=== PATIENT | male | born 1975 | race Caucasian/White ===

== ENCOUNTER → 2019-11-02 | Outpatient (CLI) | payer SELFPAY ==
[2019-10-20 16:08] VITALS: BMI 25.1
--- NOTE | 2019-11-02 12:56 | ECHOCS_ITS ---
Reason For Study: Arrhythmia Procedure This was a 2D Doppler, Color Flow transthoracic echocardiogram. The study was technically difficult. Contrast injection was performed. Exam performed in department. Left Ventricle Normal LV size. Left ventricular systolic function is normal. The estimated ejection fraction is 55 %. No regional wall motion abnormalities noted. Mitral Valve Bileaflet diffuse mitral valve thickening. Mild mitral valve prolapse. Pulmonic Valve Normal pulmonic valve. Great Vessels Normal aortic root. The pulmonary artery is normal size. Normal inferior vena cava. Pericardium/Pleural No pericardial effusion. Medication 22 gauge I.V. with prn adaptor inserted into left arm. Diluted definity 3ml given slow IV push to enhance endocardial definition. MMode/2D Measurements & Calculations LVIDd: 4.6 cm IVSd: 1.3 cm LA dimension: 3.6 cm LVIDs: 3.1 cm LVPWd: 0.98 cm FS: 31.9 % LAV(MOD-bp): 50.8 ml LA A4 area: 16.0 cm2 RA A4 area: 15.4 cm2 LAV(MOD-bp) Indexed: 25.2 ml/m2 LAV(MOD-sp2): 57.9 ml LAV(MOD-sp4): 44.5 ml Time Measurements MV dec time: 0.29 sec Doppler Measurements & Calculations MV E max natanael: 60.5 cm/sec Lat Peak E' Natanael: 8.8 cm/sec Med Peak E' Natanael: 9.5 cm/sec MV A max natanael: 47.6 cm/sec E/E' lat: 6.9 E/E' med: 6.4 MV E/A: 1.3 MV V2 max: 62.6 cm/sec MV P1/2t max natanael: 62.0 cm/sec Ao V2 max: 104.9 cm/sec MV max P.6 mmHg MV P1/2t: 93.6 msec Ao max P.4 mmHg MV V2 mean: 37.2 cm/sec MV mean P.62 mmHg MV dec slope: 194.1 cm/sec2 MV V2 VTI: 24.3 cm MVA(P1/2t): 2.4 cm2 LV V1 max: 93.2 cm/sec PA V2 max: 119.4 cm/sec LV V1 max P.5 mmHg Interpretation Summary Normal LV size. Left ventricular systolic function is normal. The estimated ejection fraction is 55 %. Bileaflet diffuse mitral valve thickening. Mild mitral valve prolapse. Ordering Physician: Jefferson Guzman Referring Physician: Jefferson Guzman Performed By: Tyler Ferreira RCS
[2019-11-02 17:54] LABS: Absolute Lymphocyte Count 1.27 X10^3/uL (0.83-4.51); Absolute Neutrophil Count 3.1 X10^3/uL (2.0-7.7); Basophil# 0.04 X10^3/uL; Basophil% 0.8 % (0-1); Eosinophil# 0.06 X10^3/uL; Eosinophils% 1.2 % (0-5); Hematocrit 44.9 % (40-54); Hemoglobin 15.3 g/dL (13.0-16.5); Lymphocyte # 1.27 X10^3/ul (4.0); Lymphocyte % 25.8 % (19-41); Mean Corp Hgb Conc 34.1 g/dL (32-36); Mean Corpuscular Hgb 29.9 pg (27.0-32.0); Mean Corpuscular Volume 87.7 fL (80-94); Mean Platelet Vol. 9.6 fl (6.2-12.0); Monocyte# 0.46 X10^3/uL; Monocyte% 9.3 % (0-10); NRBC Flagged by Analyzer 0 % (0-5); Neutrophil # 3.08 X10^3/uL (2.7-7.7); Neutrophil % 62.5 % (47-70); Platelet Count 264 K/mm3 (150-450); RBC Distribution Width SD 38.2 fl (35.1-43.9); Red Blood Count 5.12 M/mm3 (4.6-6.2); White Blood Count 4.9 K/mm3 (4.4-11.0)
[2019-11-02 18:16] LABS: ALB/GLOB Ratio 1.3 RATIO (0.9-2.4); AST(SGOT) 18 U/L (15-37); Alanine Aminotransfer ALT/SGPT 49 U/L (16-61); Albumin, Serum 4.2 g/dL (3.2-5.0); Alkaline Phosphatase 58 U/L (45-117); Anion Gap 4 (5-15); BUN 18 mg/dL (7-18); BUN/Creat Ratio 19.3 RATIO (10-20); Calcium,Total 8.4 mg/dL (8.5-10.1); Chloride 108 mmol/L (98-107); Creatinine, Serum 0.93 mg/dL (0.70-1.30); EST Glomerular Filtration Rate 94 mL/min (>60); Est Glom Filt Rate - Afr Amer 114 mL/min (>60); Globulin 3.3 g/dL (2.2-4.2); Glucose 91 mg/dL (74-106); Magnesium 2.3 mg/dL (1.6-2.6); Potassium 3.7 mmol/L (3.5-5.1); Protein, Total 7.5 g/dL (6.4-8.2); Sodium Level 139 mmol/L (136-145); Thyroid Stim Hormone (TSH) 3.53 uIU/mL (0.358-3.74); Vitamin B12 420 pg/mL (211-911); Vitamin D,25 Hydroxy 40.6 ng/mL
== END | disposition home or self-care (01) ==
PROVIDERS: PCP Family Medicine; Visit Provider Family Medicine
DX: I49.49 Other premature depolarization (principal); R00.2 Palpitations; R53.83 Other fatigue
CPT/HCPCS: 36415; 80053; 82306; 82607; 83735; 84443; 85025; 93225; 93226; 93306; Q9957; A4216; C8929

== ENCOUNTER → 2020-05-05 | Outpatient (CLI) | payer SELFPAY ==
--- NOTE | 2020-05-05 08:45 | VAS_PTH ---
PATIENT: ELMER HERNANDEZ LOC: [facility] U#:[id number] AGE/SX: 44/M ROOM: RE05/05/[address]: Dr. Andre Castano MD : [id number] BED: DIS: 05/05/2020 SPEC #: [id number] RECD: 05/05/20 10:44 STATUS: CHRISTIANE REQ #: [id number] KENZIE: 05/05/20 08:[address]: Andre Castano DEPT: SURGICAL PATHOLOGY RECD BY: Veronique Sams ENTERED: 05/05/20 11:29 SP TYPE: VAS OTHR DR: Dr. Marino Trinidad MD Tissues: A - Vas deferens, NOS B - Vas deferens, NOS Procedures: Surgery Specimen Level II HEADER OPERATION: Bilateral partial vasectomy PRE-OP DIAGNOSIS: Sterilization TISSUE SUBMITTED: A - Right vas deferens, B - Left vas deferens MICROSCOPIC DIAGNOSIS A. Right vas deferens, partial vasectomy: Completely transected segment of vas deferens, no pathologic diagnosis. B. Left vas deferens, partial vasectomy: Completely transected segment of vas deferens, no pathologic diagnosis. MERLYN:lorena 05/08/2020 MICROSCOPIC DESCRIPTION Slides are reviewed. GROSS DESCRIPTION A - Received is one container designated right vas deferens. The specimen consists of a tubular segment of arnold soft tissue measuring 0.4 cm in length and 0.1 cm in diameter. The entire specimen is submitted in one cassette. It will be sectioned at the time of embedding. B - Received is one container designated left vas deferens. The specimen consists of a tubular segment of arnold soft tissue measuring 0.5 cm in length and 0.1 cm in diameter. The entire specimen is submitted in one cassette. It will be sectioned at the time of embedding. / MERLYN:lorena 05/05/20 TC:4 CPT: 52928 x2
== END | disposition home or self-care (01) ==
LOC: LABSPEC 10:56
PROVIDERS: PCP Family Medicine; Referring Provider Surgery; Visit Provider Surgery
DX: Z30.2 Encounter for sterilization (principal)
CPT/HCPCS: 88302

== ENCOUNTER → 2020-10-31 | Outpatient (CLI) | payer SELFPAY ==
[2020-10-31 12:17] VITALS: BMI 25.5
[2020-11-01 13:34] LABS: Semen Analysis Post Vas ABSENT
== END | disposition home or self-care (01) ==
LOC: LABSPEC 14:50
PROVIDERS: PCP Family Medicine; Visit Provider Surgery
DX: Z98.52 Vasectomy status (principal)
CPT/HCPCS: 89321

== ENCOUNTER 2021-04-23 15:21 | Outpatient (CLI) | payer OTHER, SELFPAY ==
[2021-04-24 14:19] LABS: Semen Analysis Post Vas REVIEWED
== END 2021-04-23 23:59 | disposition home or self-care (01) ==
LOC: LABSPEC 15:21
PROVIDERS: PCP Family Medicine; Visit Provider Surgery
DX: Z98.52 Vasectomy status (principal)
CPT/HCPCS: 89321

== ENCOUNTER → 2021-10-11 | Outpatient (CLI) | payer OTHER, SELFPAY ==
--- NOTE | 2021-10-11 10:32 | RAD_ITS ---
INDICATION: COUGH EXAMINATION/TECHNIQUE: X-RAY - XR Chest 2 Views COMPARISON: None. FINDINGS: Support devices: None. No focal consolidations, effusions, or sizable pneumothorax. Cardiomediastinal silhouette is within normal limits. No acute findings in the bones or soft tissues. RAD/Chest PA and Lateral IMPRESSION: No radiographic evidence of acute cardiopulmonary disease. Electronically Signed: Matthew Anderson, at 10:52 EDT ,
== END | disposition home or self-care (01) ==
LOC: MTRAD 10:30
PROVIDERS: PCP Family Medicine; Referring Provider Family Medicine; Visit Provider Family Medicine
DX: R05.9 Cough, unspecified (principal)
CPT/HCPCS: 71046

== ENCOUNTER → 2022-11-15 | Outpatient (CLI) | payer OTHER, SELFPAY ==
[2022-11-15 17:34] LABS: Absolute Lymphocyte Count 1.47 X10^3/uL (0.83-4.51); Absolute Neutrophil Count 2.7 X10^3/uL (2.0-7.7); Basophil# 0.04 X10^3/uL; Basophil% 0.8 % (0-1); Eosinophils% 2.1 % (0-5); Hematocrit 48.1 % (40-54); Hemoglobin 15.8 g/dL (13.0-16.5); Lymphocyte # 1.47 X10^3/ul (0.83-4.51); Lymphocyte % 30.4 % (19-41); Mean Corp Hgb Conc 32.8 g/dL (32-36); Mean Corpuscular Hgb 29.2 pg (27.0-32.0); Mean Corpuscular Volume 88.7 fL (80-94); Mean Platelet Vol. 9.5 fl (6.2-12.0); Monocyte# 0.52 X10^3/uL; Monocyte% 10.7 % (0-10); NRBC Flagged by Analyzer 0 % (0-5); Neutrophil % 55.8 % (47-70); Platelet Count 287 K/mm3 (150-450); RBC Distribution Width SD 39.1 fl (35.1-43.9); Red Blood Count 5.42 M/mm3 (4.6-6.2); White Blood Count 4.8 K/mm3 (4.4-11.0)
[2022-11-15 18:07] LABS: ALB/GLOB Ratio 1.3 RATIO (0.9-2.4); AST(SGOT) 19 U/L (15-37); Alanine Aminotransfer ALT/SGPT 40 U/L (16-61); Albumin, Serum 4.3 g/dL (3.2-5.0); Alkaline Phosphatase 58 U/L (45-117); Anion Gap 5 (5-15); BUN 18 mg/dL (7-18); BUN/Creat Ratio 15.3 RATIO (10-20); Calcium,Total 9.1 mg/dL (8.5-10.1); Chloride 105 mmol/L (98-107); Cholesterol 183 mg/dL (200); Creatinine, Serum 1.18 mg/dL (0.70-1.30); EST Glomerular Filtration Rate 71 mL/min (>60); Est Glom Filt Rate - Afr Amer 86 mL/min (>60); Globulin 3.4 g/dL (2.2-4.2); Glucose 95 mg/dL (74-106); High Density Lipoprotein 53 mg/dL; PSA,Total - Annual Screen 0.41 ng/mL (0.00-4.00); Potassium 4.9 mmol/L (3.5-5.1); Protein, Total 7.7 g/dL (6.4-8.2); Sodium Level 139 mmol/L (136-145); Thyroid Stim Hormone (TSH) 6.66 uIU/mL (0.358-3.74); Triglycerides 174 mg/dL; Very Low Density Lipoprotein 35 mg/dL (5-40)
== END | disposition home or self-care (01) ==
LOC: MFPLAB 16:17
PROVIDERS: PCP Family Medicine; Visit Provider Family Medicine
DX: R39.198 Other difficulties with micturition (principal); Z13.220 Encounter for screening for lipoid disorders
CPT/HCPCS: 36415; 80053; 80061; 84153; 84443; 85025; G0103

== ENCOUNTER → 2023-01-10 | Outpatient (CLI) | payer OTHER, SELFPAY ==
[2023-01-10 18:09] LABS: Vitamin B12 455 pg/mL (211-911); Vitamin D,25 Hydroxy 45.1 ng/mL
[2023-01-10 18:13] LABS: Thyroid Stim Hormone (TSH) 3.62 uIU/mL (0.358-3.74)
[2023-01-16 12:09] LABS: Anti-Thyroglobulin AB < 1.0 IU/mL (0.0-0.9); Testosterone, % Free 2.23 % (1.50-4.20); Testosterone, Free 2.27 ng/dL (5.00-21.00); Testosterone, Total 102 ng/dL (264-916); Thyroglobulin, Serum Qt. 15.7 ng/mL (1.4-29.2); Thyroid Peroxidase AB 359 IU/mL (0-34); Thyroid Stim Immunoglob 0.37 IU/L (0.00-0.55)
== END | disposition home or self-care (01) ==
LOC: MFPLAB 14:49
PROVIDERS: PCP Family Medicine; Visit Provider Family Medicine
DX: R53.83 Other fatigue (principal); E01.0 Iodine-deficiency related diffuse (endemic) goiter
CPT/HCPCS: 36415; 82306; 82607; 84402; 84403; 84432; 84439; 84443; 84445; 86376; 86800

== ENCOUNTER → 2023-01-27 | Outpatient (CLI) | payer OTHER, SELFPAY ==
--- NOTE | 2023-01-27 16:17 | US_ITS ---
STUDY: THYROID ULTRASOUND REASON FOR EXAM: Male, 47 years old. THYROMAEGALY TECHNIQUE: Ultrasound evaluation of the thyroid was performed with real-time and static mclain-scale imaging. COMPARISON: None. FINDINGS: RIGHT LOBE: The right lobe of the thyroid gland measures 5.5 x 1.7 x 1.8 cm. There is a heterogeneous echotexture. There are no demonstrated solid, cystic or complex lesions. LEFT LOBE: The left lobe of the thyroid gland measures 4.7 x 1.3 x 1.5 cm. There is a heterogeneous echotexture. There are no demonstrated solid, cystic or complex lesions. ISTHMUS: The isthmus measures 0.52 cm. The regional lymph nodes are normal. US/Thyroid IMPRESSION: Unremarkable ultrasound examination of the thyroid with no distinct nodule or mass seen. Electronically Signed: Ibis Gallo MD at 20:52 EDT ,
== END | disposition home or self-care (01) ==
LOC: US 16:16
PROVIDERS: PCP Family Medicine; Referring Provider Family Medicine; Visit Provider Family Medicine
DX: E01.0 Iodine-deficiency related diffuse (endemic) goiter (principal)
CPT/HCPCS: 76536

== ENCOUNTER → 2023-04-23 | Outpatient (CLI) | payer OTHER, SELFPAY ==
--- OUTSIDE RECORDS SUMMARY | 2023-04-23 16:40 | XMS RPT_ITS | CCD ---
Author Name Unknown Address [address] [place] [address] Organization [facility] Care Team Providers Care Molder Sweep Name Role Phone [facility] Admitting Unava ilable [facility] Primary Care Unava ilable [facility] Attending UnaALEXIS Pinedo Consulting Unavailable PROVIDER, UNKNOWN Consulting Unavailable PROVIDER, UNKNOWN Consulting Unavailable PROVIDER, UNKNOWN Consulting Unavailable CHRIS, YASMANI MULE SPINNER- Admitting Unavailable PEREZ, YASMANI MULE SPINNER- Primary Care Unavailable PEREZ, YASMANI MULE SPINNER- Attending Unavailable ALEXIS NELSON Consulting Unavailable PROVIDER, UNKNOWN Consulting Unavailable PROVIDER, UNKNOWN Consulting Unavailable PROVIDER, UNKNOWN Consulting Unavailable Encounters Encounter Date Encounter Type Care Provider Facility Start: 02-26-2021 End: 02-26-2021 ambulatory [facility] Start: 11-20-2020 End: 11-20-2020 [facility] Summary Purpose Family History No Family History Records Found Advance Directives No Advanced Directives Records Found Additional Source Comments (unrecognized sect ion and content) No Status Records Found INFORMATION SOURCE (unrecogn ized section and content) FOR RECORDS PERTAINING TO PATIENTS WHO ARE OR HAVE BEEN ENROLLED IN A CHEMICAL DEPENDENCY/SUBSTANCEABUSE PROGRAM, SOME INFORMATION MAY BE OMITTED. This clinical summary was aggregated from multiple sources. Caution should be exercised in using it in the provision of clinical care. This summary normalizes information from multiple sources, and as a consequence, information in this document may materially change the coding, format and clinical context of patient data. In addition, data may be omitted in some cases. CLINICAL DECISIONS SHOULD BE BASED ON THE PRIMARY CLINICAL RECORDS. [facility] [employer] [facility]. provides no warranty or guarantee of the accuracy or completeness of information in this document.
[2023-04-23 18:33] LABS: T4 Free Direct 0.75 ng/dL (0.76-1.46); Thyroid Stim Hormone (TSH) 5.42 uIU/mL (0.358-3.74)
[2023-05-03 00:23] LABS: Testosterone Free 3.8 pg/mL (6.8-21.5)
== END | disposition home or self-care (01) ==
LOC: MFPLAB 15:59
PROVIDERS: PCP Family Medicine; Visit Provider Family Medicine
DX: E06.3 Autoimmune thyroiditis (principal)
CPT/HCPCS: 36415; 84402; 84403; 84439; 84443

== ENCOUNTER → 2023-07-23 | Outpatient (CLI) | payer OTHER, SELFPAY ==
[2023-07-23 18:01] LABS: Absolute Lymphocyte Count 1.54 X10^3/uL (0.83-4.51); Absolute Neutrophil Count 2.4 X10^3/uL (2.0-7.7); Basophil# 0.05 X10^3/uL; Basophil% 1.1 % (0-1); Eosinophil# 0.07 X10^3/uL; Eosinophils% 1.5 % (0-5); Hematocrit 45.3 % (40-54); Hemoglobin 15.5 g/dL (13.0-16.5); Lymphocyte # 1.54 X10^3/ul (0.83-4.51); Lymphocyte % 33.6 % (19-41); Mean Corp Hgb Conc 34.2 g/dL (32-36); Mean Corpuscular Hgb 29.2 pg (27.0-32.0); Mean Corpuscular Volume 85.5 fL (80-94); Mean Platelet Vol. 9.3 fl (6.2-12.0); Monocyte# 0.48 X10^3/uL; Monocyte% 10.5 % (0-10); NRBC Flagged by Analyzer 0 % (0-5); Neutrophil # 2.44 X10^3/uL (2.7-7.7); Neutrophil % 53.1 % (47-70); Platelet Count 317 K/mm3 (150-450); RBC Distribution Width CV 11.9 % (11.6-14.6); RBC Distribution Width SD 36.7 fl (35.1-43.9); White Blood Count 4.6 K/mm3 (4.4-11.0)
[2023-07-23 18:47] LABS: Vitamin B12 386 pg/mL (211-911); Vitamin D,25 Hydroxy 33.9 ng/mL
[2023-07-23 18:52] LABS: ALB/GLOB Ratio 1.3 RATIO (0.9-2.4); AST(SGOT) 18 U/L (15-37); Alanine Aminotransfer ALT/SGPT 44 U/L (16-61); Albumin, Serum 4.5 g/dL (3.2-5.0); Alkaline Phosphatase 63 U/L (45-117); Anion Gap 6 (5-15); BUN 17 mg/dL (7-18); BUN/Creat Ratio 15.6 RATIO (10-20); Chloride 106 mmol/L (98-107); Creatinine, Serum 1.09 mg/dL (0.70-1.30); EST Glomerular Filtration Rate 77 mL/min (>60); Est Glom Filt Rate - Afr Amer 94 mL/min (>60); Globulin 3.4 g/dL (2.2-4.2); Glucose 90 mg/dL (74-106); Potassium 3.7 mmol/L (3.5-5.1); Protein, Total 7.9 g/dL (6.4-8.2); Sodium Level 139 mmol/L (136-145)
== END | disposition home or self-care (01) ==
LOC: MFPLAB 17:03
PROVIDERS: PCP Family Medicine; Visit Provider Family Medicine
DX: E06.3 Autoimmune thyroiditis (principal); R53.83 Other fatigue; G47.33 Obstructive sleep apnea (adult) (pediatric)
CPT/HCPCS: 36415; 80053; 82306; 82607; 84402; 84403; 84439; 84443; 85025

== ENCOUNTER → 2023-12-12 | Outpatient (CLI) | payer OTHER, SELFPAY ==
[2023-12-12 17:50] LABS: Absolute Lymphocyte Count 1.42 X10^3/uL (0.83-4.51); Absolute Neutrophil Count 2.1 X10^3/uL (2.0-7.7); Basophil# 0.04 X10^3/uL; Eosinophil# 0.11 X10^3/uL; Eosinophils% 2.6 % (0-5); Hematocrit 45.7 % (40-54); Hemoglobin 15.2 g/dL (13.0-16.5); Lymphocyte # 1.42 X10^3/ul (0.83-4.51); Lymphocyte % 33.7 % (19-41); Mean Corp Hgb Conc 33.3 g/dL (32-36); Mean Corpuscular Hgb 29.2 pg (27.0-32.0); Mean Corpuscular Volume 87.7 fL (80-94); Mean Platelet Vol. 9.5 fl (6.2-12.0); Monocyte# 0.49 X10^3/uL; Monocyte% 11.6 % (0-10); NRBC Flagged by Analyzer 0 % (0-5); Neutrophil # 2.14 X10^3/uL (2.7-7.7); Neutrophil % 50.9 % (47-70); Platelet Count 278 K/mm3 (150-450); RBC Distribution Width CV 12.2 % (11.6-14.6); RBC Distribution Width SD 39.4 fl (35.1-43.9); Red Blood Count 5.21 M/mm3 (4.6-6.2); White Blood Count 4.2 K/mm3 (4.4-11.0)
[2023-12-12 18:15] LABS: ALB/GLOB Ratio 1.2 RATIO (0.9-2.4); AST(SGOT) 20 U/L (15-37); Alanine Aminotransfer ALT/SGPT 45 U/L (16-61); Albumin, Serum 4.1 g/dL (3.2-5.0); Alkaline Phosphatase 61 U/L (45-117); Anion Gap 7 (5-15); BUN 17 mg/dL (7-18); Calcium,Total 9.1 mg/dL (8.5-10.1); Chloride 104 mmol/L (98-107); Creatinine, Serum 1.13 mg/dL (0.70-1.30); EST Glomerular Filtration Rate 74 mL/min (>60); Est Glom Filt Rate - Afr Amer 90 mL/min (>60); Globulin 3.3 g/dL (2.2-4.2); Glucose 94 mg/dL (74-106); Potassium 4.3 mmol/L (3.5-5.1); Protein, Total 7.4 g/dL (6.4-8.2); Sodium Level 140 mmol/L (136-145); T4 Free Direct 0.83 ng/dL (0.76-1.46)
[2023-12-17 14:09] LABS: Testosterone Free 2.7 pg/mL (6.8-21.5)
== END | disposition home or self-care (01) ==
LOC: MFPLAB 16:30
PROVIDERS: PCP Family Medicine; Visit Provider Family Medicine
DX: E06.3 Autoimmune thyroiditis (principal); R53.83 Other fatigue
CPT/HCPCS: 36415; 80053; 84402; 84403; 84439; 84443; 85025

== ENCOUNTER → 2024-06-11 | Outpatient (CLI) | payer OTHER, SELFPAY ==
[2024-06-11 18:34] LABS: PSA,Total - Annual Screen 0.39 ng/mL (0.00-4.00); T4 Free Direct 0.82 ng/dL (0.76-1.46)
== END | disposition home or self-care (01) ==
LOC: MFPLAB 16:24
PROVIDERS: PCP Family Medicine; Referring Provider Family Medicine; Visit Provider Family Medicine
DX: Z12.5 Encounter for screening for malignant neoplasm of prostate (principal); E06.3 Autoimmune thyroiditis
CPT/HCPCS: 36415; 84153; 84439; 84443; G0103

== ENCOUNTER → 2024-12-13 | Outpatient (CLI) | payer OTHER, SELFPAY ==
[2024-12-13 16:55] LABS: PSA,Total - Annual Screen 0.34 ng/mL (0.02-4.00); T4 Total, Thyroxin 4.6 ug/dL (4.5-12.1)
--- OUTSIDE RECORDS SUMMARY | 2024-12-13 17:00 | XMS RPT_ITS | CCD ---
Author Organization [facility] Care Team Providers Care Uke Operator Name Role Phone [facility] Admitting Unava ilariana [facility] Primary Care Unava ilable RAYNE, [facility] Attending Unava ALEXIS Ontiveros Consulting Unavailable PROVIDER, UNKNOWN Consulting Unavailable PROVIDER, UNKNOWN Consulting Unavailable PROVIDER, UNKNOWN Consulting Unavailable YASMANI PEREZ SPANISH LINGUIST- Admitting Unavailable PEREZ, YASMANI SPANISH LINGUIST- Primary Care Unavailable PEREZYASMANI Goins SPANISH LINGUIST- Attending Unavailable ALEXIS NELSON Consulting Unavailable PROVIDER, UNKNOWN Consulting Unavailable PROVIDER, UNKNOWN Consulting Unavailable PROVIDER, UNKNOWN Consulting Unavailable Marino Trinidad Attending Unavailable Marino Trinidad Primary Care Unavailable Marino Trinidad Primary Care Unavailable Marino Trinidad Attending Unavailable Marino Trinidad Attending Unavailable Marino Trinidad Primary Care Unavailable Marino Trinidad Referring Unavailable Roof SINGLE END SEWERMarino Attending Unavailable Marino Trinidad Primary Care Unavailable Marino Trinidad Referring Unavailable Medications Current Medications Medication Drug Class(es) Dates Sig (Normalized) Sig (Original) [place] (Nk) (5 sources) Start: 10-31-2020 [place] (Nk) A ctive October 30, 2020 11:00pm Start: 10-31-2020 [place] (Nk) A ctive October 31, 2020 12:00am Completed/Discontinued Medications Medication Drug Class(es) Dates Sig (Normalized) Sig (Original) acetaminophen 300 mg / codeine phosphate 15 mg oral tablet (5 sources) Opioid Agonist Start: 05-05-2020 End: 05-15-2020 Acetaminophen-Codei ne Discontinued 1 TABLET PO As Directed May 05, 2020 1:00am May 15, 2020 1:46pm LORazepam 2 mg oral tablet (5 sources) Benzodiazepine Start: 04-07-2020 End: 05-05-2020 Lorazepam (Ativan) 2 mg tablet Discontinued 2 MG PO ONCE 1 April 07, 2020 1:00am May 05, 2020 10:02am Take 1 tab by mouth 45 minutes prior to the procedure Problems Active Problems Problem Classification Problem Date Documented Date Episodic/Chronic Cardiac dysrhythmias (5 sources) Multiple premature ventricular complexes; Translations: [Ventricular premature depolarization] 10-20-2019 Chronic Cardiac dysrhythmias (5 sources) Intermittent palpitations; Translations: [Palpitations] 10-20-2019 Episodic Esophageal disorders (5 sources) Gastroesophageal reflux disease; Translations: [Gastro-esophageal reflux disease without esophagitis] 10-31-2020 Chronic Heart valve disorders (5 sources) Mitral valve prolapse; Translations: [Nonrheumatic mitral (valve) prolapse] 11-02-2019 Chronic Malaise and fatigue (5 sources) Fatigue; Translations: [Other fatigue] 10-31-2020 Episodic Other screening for suspected conditions (not mental disorders or infectious disease) (1 source) Encounter for screening for malignant neoplasm of prostate; Translations: [Encounter for screening for malignant neoplasm of prostate] Onset: 06-22-2024 Episodic Thyroid disorders (1 source) Autoimmune thyroiditis; Translations: [Autoimmune thyroiditis] Onset: 12-29-2023 Chronic Past or Other Problems Problem Classification Problem Date Documented Date Episodic/Chronic Residual codes; unclassified (5 sources) History of radiofrequency ablation operation for arrhythmia; Translations: [Other specified postprocedural states] Onset: 06-14-2016 10-31-2020 Episodic Residual codes; unclassified (5 sources) History of cardiac catheterization; Translations: [Other specified postprocedural states] Onset: 12-19-2014 10-31-2020 Episodic Results Test Name Value Interpretation Reference Range Facility PSA,Total - Annual Screenon 06-11-2024 PSA,TOT SCREEN 0.39 ng/mL Normal 0.00-4.00 [facility] Comment on above: Order Comment: Order Date: 07/23/23 Order Info: 2132-9 - B12 Order Info: [id number] - VITD25 Order Info: 2986-8 - RC Result Comment: This test was performed using the TPSA assay method for the [employer] system. Values obtained with different assay methods cannot be used interchangably. When changing PSA assays in the course of monitoring a patient, additional sequential testing should be carried out to confirm baseline values. Performed By: #### L 501.9520, L509.3000, L3400.4800, L506.0400, L100.0100, L500.4050 #### [facility] [address] [place], [address] T4 Free Directon 06-11-2024 T4 FREE DIRECT 0.82 ng/dL Normal 0.76-1.46 [facility] Comment on above: Order Comment: Order Date: 07/23/23 Order Info: 2132-9 - B12 Order Info: [id number] - VITD25 Order Info: 2986-8 - RC Performed By: #### L 501.9520, L509.3000, L3400.4800, L506.0400, L100.0100, L500.4050 #### [facility] [address] [place], [address] Thyroid Stim Hormone (TSH)on 06-11-2024 TSH 5.270 uIU/mL High 0.358-3.740 [facility] Comment on above: Order Comment: Order Date: 07/23/23 Order Info: 2132-9 - B12 Order Info: [id number] - VITD25 Order Info: 2986-8 - RC Performed By: #### L 501.9520, L509.3000, L3400.4800, L506.0400, L100.0100, L500.4050 #### [facility] [address] [place], [address] Urgent Care Visit Reporton 05-07-2023 Urgent Care Visit Report [facility] [address], [address] [place], [place] [address] OFFICE VISIT Date of Service: 03/07/24 MR#: [id number] Acct: [id number] Name: ELMER HERNANDEZ Rep #: [id number] 3 : 1975 Provider: MICHAEL vidal Age/Sex: 48/M Location: [facility] Status: Signed Intake Vital Signs 10/31/20 12:17 03/07/24 08:18 Height 5 ft 11 in 5 ft 11 in Weight: 197 lb BMI 27.4 BP 126/78 H Blood Pressure Location Lt brachial Position Sitting Respiration 16 Pulse 80 Pulse Source NIBP Temp 98.8 F Temp Source Oral Pulse Oximetry (%) 98 Oxygen Delivery Method room air Intake Visit Reasons: Cough Chief Complaint: cough, chest congest, ST Piano Accompanist Required: No Is patient in pain?: No Allergies No Known Allergies Allergy (Verified 03/07/24 09:03) Medications ???Medication ???Instructions ???Recorded ???Confirmed ???Type azithromycin 250 mg tablet See Rx Instructions PO .COMPLEX #6 03/07/24 03/07/24 Rx (Zithromax Z-Aleksandar) tabs levothyroxine 50 mcg tablet 50 mcg PO QDAY 03/07/24 03/07/24 History Have you fallen in the past year?: No Nurse's Note: cough, chest congest, ST for over 10 days. denies [place], fever, mucus. hx asthma, tried albuterol inhaler without relief. declines viral testing. [facility] Medical History (Updated 03/07/24 @ 09:23 by Marino Mann SINGLE END SEWER, SINGLE END SEWER-C) URI (upper respiratory infection) Acid reflux Nonrheumatic mitral (valve) prolapse Intermittent palpitations Multiple premature ventricular complexes Surgical History History of vasectomy (04/2020) History of left heart catheterization (12/19/14) History of radiofrequency ablation procedure for cardiac arrhythmia (06/14/16) Family History Father Multiple sclerosis Brother CVA (cerebral vascular accident) Mother Heart disease MVP Brother Heart disease Atrial Fib Social History Smoking Status: Never smoker second hand exposure: No alcohol intake: current alcohol intake frequency: holidays/special occasions only substance use type: does not use caffeine: Yes HPI HPI Chief Complaint: cough, chest congest, ST Details: ELMER HERNANDEZ, is a 48 M who presents to the office today for concerns regarding cough. He states this has been ongoing for 2 weeks. He also acknowledges ongoing chest congestion. He acknowledges using his albuterol inhaler with no change or improvement in symptoms. ROS Const Constitutional: Positive for sleep problems (unknown reason); No body ache, chills, fatigue, fever(s), headache(s) or change in appetite Eyes Eyes: No blurry vision, change in vision, double vision, irritation, discharge, vision loss, dry eyes, bulging eyes, floaters, visual disturbances, eye pain, Light sensitivity, spots in vision, tunnel vision or other ENT ENT: Positive for other (scratchy throat, sneeze); No ear or mastoid pain, ear discharge, ear pressure, tinnitus, dizziness/vertigo, nosebleed/epistaxis, nasal congestion, nose pain, sinus pressure, sinus pain, nasal discharge, post nasal drip, headache(s), facial pain, dental pain, difficulty swallowing, bad breath, hoarseness, lip swelling, mouth lesions, mouth pain, neck pain, sore throat, tongue swelling or throat swelling Resp Respiratory: Positive for cough Cough: Yes productive, change in phlegm color (white), chest congestion and shortness of breath; No hemoptysis, pain on inspiration, pain with cough, stridor or wheezing Cardio Cardiology: No chest pain at rest, chest pain with exertion, shortness of breath, dyspnea on exertion, irregular heart rhythm or lightheadedness Gastro GI: Positive for constipation (chronic); No abdominal pain, change in bowel habits, diarrhea, difficulty swallowing, nausea/dyspepsia or vomiting Genitourinary Male: No burning urination or urinary frequency Musc Musculoskeletal: No joint pain or neck pain Skin Skin: No rash Neuro Neurology: No headache(s) or visual disturbances Psych Psychiatric: No change in appetite Endo Endocrine: Positive for other (scratchy throat, sneeze); No fatigue Aller/Imm Allergy/Immunologic: No lip swelling, throat swelling, tongue swelling or wheezing Exam Const General: cooperative, healthy appearing, comfortable and no acute distress Orientation: alert, awake and oriented x3 HENMT Head: normal to inspection and normocephalic Ears: hearing grossly normal bilaterally, external ears normal and TM's normal bilaterally Nose: external nose normal, nares normal and no nasal discharge Face and sinus: normal facial exam and sinuses nontender Mouth: oral mucosae normal, lip normal, tongue normal, oropharynx normal and moist mucous membranes Th (more content not included)... Normal [facility] Testosterone Freeon 12-17-19 TESTOSTER FREE 2.7 pg/mL Abnormal 6.8-21.5 [facility] Comment on above: Order Comment: Order Date: 07/23/23 Order Info: 2132-9 - B12 Order Info: [id number] - VITD25 Order Info: 2986-8 - RC Result Comment: Perf ormed at: [facility] - [facility] [address] [id number] Residential Support Specialist: Juan Parkinson MD, Phone: [phone] Performed By: #### L 501.9520, L509.3000, L3400.4800, L506.0400, L100.0100, L500.4050 #### [facility] [address] [place], [place], [address] CBC W/Diff, Automatedon 11-20 Absolute Lymph 1.42 X10 3/uL Normal 0.83-4.51 [facility] Comment on above: Order Comment: Order Date: 12/12/23 Order Info: 0184-1 - CBCD Performed By: #### L 509.3000, L500.4050, L100.0100, L506.0400, L3400.4800, L501.9520 #### [facility] [address] [place], [address] Absolute Neut 2.1 X10 3/uL Normal 2.0-7.7 [facility] Comment on above: Order Comment: Order Date: 12/12/23 Order Info: 0184-1 - CBCD Performed By: #### L 509.3000, L500.4050, L100.0100, L506.0400, L3400.4800, L501.9520 #### [facility] [address] [place], [address] Basophils/100 WBC (Bld) 1.0 % Normal 0-1 [facility] Comment on above: Order Comment: Order Date: 12/12/23 Order Info: 0184-1 - CBCD Performed By: #### L 509.3000, L500.4050, L100.0100, L506.0400, L3400.4800, L501.9520 #### [facility] [address] [place], [address] Eosinophils/100 WBC (Bld) 2.6 % Normal 0-5 [facility] Comment on above: Order Comment: Order Date: 12/12/23 Order Info: 0184- - CBCD Performed By: #### L 509.3000, L500.4050, L100.0100, L506.0400, L3400.4800, L501.9520 #### [facility] [address] [place], [address] Erythrocyte distribution width (RBC) [Ratio] 12.2 % Normal 11.6-14.6 [facility] Comment on above: Order Comment: Order Date: 12/12/23 Order Info: 0184- - CBCD Performed By: #### L 509.3000, L500.4050, L100.0100, L506.0400, L3400.4800, L501.9520 #### [facility] [address] [place], [address] Hematocrit (Bld) [Volume fraction] 45.7 % Normal 40-54 [facility] Comment on above: Order Comment: Order Date: 12/12/23 Order Info: 0184-1 - CBCD Performed By: #### L 509.3000, L500.4050, L100.0100, L506.0400, L3400.4800, L501.9520 #### [facility] [address] [place], [address] Hemoglobin (Bld) [Mass/Vol] 15.2 g/dL Normal 13.0-16.5 [facility] Comment on above: Order Comment: Order Date: 12/12/23 Order Info: 0184-1 - CBCD Performed By: #### L 509.3000, L500.4050, L100.0100, L506.0400, L3400.4800, L501.9520 #### [facility] [address] [place], [address] IG% 0.200 Normal 0.0-0.9 [facility] Comment on above: Order Comment: Order Date: 12/12/23 Order Info: 0184-1 - CBCD Result Comment: IG% - Immature Granulocytes (promyelocytes, myelocytes and metamyelocytes) > 1% indicates that a LEFT SHIFT is Present. Performed By: #### L 509.3000, L500.4050, L100.0100, L506.0400, L3400.4800, L501.9520 #### [facility] [address] [place], [address] Lymphocytes/100 WBC (Bld) 33.7 % Normal 19-41 [facility] Comment on above: Order Comment: Order Date: 12/12/23 Order Info: 0184-1 - CBCD Performed By: #### L 509.3000, L500.4050, L100.0100, L506.0400, L3400.4800, L501.9520 #### [facility] [address] [place], [address] MCH (RBC) [Entitic mass] 29.2 pg Normal 27.0-32.0 [facility] Comment on above: Order Comment: Order Date: 12/12/23 Order Info: 0184-1 - CBCD Performed By: #### L 509.3000, L500.4050, L100.0100, L506.0400, L3400.4800, L501.9520 #### [facility] [address] [place], [address] MCHC (RBC) [Mass/Vol] 33.3 g/dL Normal 32-36 [facility] Comment on above: Order Comment: Order Date: 12/12/23 Order Info: 0184- - CBCD Performed By: #### L 509.3000, L500.4050, L100.0100, L506.0400, L3400.4800, L501.9520 #### [facility] [address] [place], [address] MCV (RBC) [Entitic vol] 87.7 fL Normal 80-94 [facility] Comment on above: Order Comment: Order Date: 12/12/23 Order Info: 018- - CBCD Performed By: #### L 509.3000, L500.4050, L100.0100, L506.0400, L3400.4800, L501.9520 #### [facility] [address] [place], [address] Monocytes/100 WBC (Bld) 11.6 % High 0-10 [facility] Comment on above: Order Comment: Order Date: 12/12/23 Order Info: 018- - CBCD Performed By: #### L 509.3000, L500.4050, L100.0100, L506.0400, L3400.4800, L501.9520 #### [facility] [address] [place], [address] Neutrophils/100 WBC (Bld) 50.9 % Normal 47-70 [facility] Comment on above: Order Comment: Order Date: 12/12/23 Order Info: 0184- - CBCD Performed By: #### L 509.3000, L500.4050, L100.0100, L506.0400, L3400.4800, L501.9520 #### [facility] [address] [place], [address] Nucleated RBC (Bld) [#/Vol] 0 10*3/uL Normal 0-5 [facility] Comment on above: Order Comment: Order Date: 12/12/23 Order Info: 0184- - CBCD Performed By: #### L 509.3000, L500.4050, L100.0100, L506.0400, L3400.4800, L501.9520 #### [facility] [address] [place], [address] Platelet mean volume (Bld) [Entitic vol] 9.5 fL Normal 6.2-12.0 [facility] Comment on above: Order Comment: Order Date: 12/12/23 Order Info: 0184-1 - CBCD Performed By: #### L 509.3000, L500.4050, L100.0100, L506.0400, L3400.4800, L501.9520 #### [facility] [address] [place], [address] Platelets (Bld) [#/Vol] 278 10*3/uL Normal 150-450 [facility] Comment on above: Order Comment: Order Date: 12/12/23 Order Info: 0184-1 - CBCD Performed By: #### L 509.3000, L500.4050, L100.0100, L506.0400, L3400.4800, L501.9520 #### [facility] [address] [place], [address] RBC (Bld) [#/Vol] 5.21 10*6/uL Normal 4.6-6.2 [facility] Comment on above: Order Comment: Order Date: 12/12/23 Order Info: 0184-1 - CBCD Performed By: #### L 509.3000, L500.4050, L100.0100, L506.0400, L3400.4800, L501.9520 #### [facility] [address] [place], [address] RDW SD 39.4 fl Normal 35.1-43.9 [facility] Comment on above: Order Comment: Order Date: 12/12/23 Order Info: 0184-1 - CBCD Performed By: #### L 509.3000, L500.4050, L100.0100, L506.0400, L3400.4800, L501.9520 #### [facility] [address] [place], [address] WBC (Bld) [#/Vol] 4.2 10*3/uL Low 4.4-11.0 [facility] Comment on above: Order Comment: Order Date: 12/12/23 Order Info: 0184-1 - CBCD Performed By: #### L 509.3000, L500.4050, L100.0100, L506.0400, L3400.4800, L501.9520 #### [facility] [address] [place], [address] Comprehensive Metabolic Prof ilon 12-12-2023 Albumin [Mass/Vol] 4.1 g/dL Normal 3.2-5.0 [facility] Comment on above: Order Comment: Order Date: 07/23/23 Order Info: 2132-9 - B12 Order Info: [id number] - VITD25 Order Info: 2986-8 - RC Performed By: #### L 501.9520, L509.3000, L3400.4800, L506.0400, L100.0100, L500.4050 #### [facility] [address] [place], [address] Albumin/Globulin [Mass ratio] 1.2 {ratio} Normal 0.9-2.4 [facility] Comment on above: Order Comment: Order Date: 07/23/23 Order Info: 2132-9 - B12 Order Info: 37851-1 - VITD25 Order Info: 2986-8 - RC Performed By: #### L 501.9520, L509.3000, L3400.4800, L506.0400, L100.0100, L500.4050 #### [facility] [address] [place], [address] ALK P 61 U/L Normal 45-117 [facility] Comment on above: Order Comment: Order Date: 07/23/23 Order Info: 2131-12 Order Info: [id number] - VITD25 Order Info: 8 - RC Performed By: #### L 501.9520, L509.3000, L3400.4800, L506.0400, L100.0100, L500.4050 #### [facility] [address] [place], [address] ALT [Catalytic activity/Vol] 45 U/L Normal 16-61 [facility] Comment on above: Order Comment: Order Date: 07/23/23 Order Info: 2131-12 Order Info: 92296-9 - VITD25 Order Info: 8 - RC Performed By: #### L 501.9520, L509.3000, L3400.4800, L506.0400, L100.0100, L500.4050 #### [facility] [address] [place], [address] AST [Catalytic activity/Vol] 20 U/L Normal 15-37 [facility] Comment on above: Order Comment: Order Date: 07/23/23 Order Info: 2131-12 Order Info: [id number] - VITD25 Order Info: 2988 - RC Performed By: #### L 501.9520, L509.3000, L3400.4800, L506.0400, L100.0100, L500.4050 #### [facility] [address] [place], [address] Bilirubin [Mass/Vol] 0.60 mg/dL Normal 0.20-1.00 [facility] Comment on above: Order Comment: Order Date: 07/23/23 Order Info: 2131-12 Order Info: 05934-8 - VITD25 Order Info: 298-8 - RC Result Comment: For patients on eltrombopag therapy, use of Dimension Elizabeth TBIL is not recommended. Performed By: #### L 501.9520, L509.3000, L3400.4800, L506.0400, L100.0100, L500.4050 #### [facility] [address] [place], [address] BUN/CRE 15.0 RATIO Normal 10-20 [facility] Comment on above: Order Comment: Order Date: 07/23/23 Order Info: 2131-9 - B12 Order Info: 21727-9 - VITD25 Order Info: 2986-8 - RC Performed By: #### L 501.9520, L509.3000, L3400.4800, L506.0400, L100.0100, L500.4050 #### [facility] [address] [place], [address] CA,Total 9.1 mg/dL Normal 8.5-10.1 [facility] Comment on above: Order Comment: Order Date: 07/23/23 Order Info: 2131-12 - B12 Order Info: 09261-6 - VITD25 Order Info: 2986-8 - RC Performed By: #### L 501.9520, L509.3000, L3400.4800, L506.0400, L100.0100, L500.4050 #### [facility] [address] [place], [address] Chloride [Moles/Vol] 104 mmol/L Normal 98-107 [facility] Comment on above: Order Comment: Order Date: 07/23/23 Order Info: 9 - B12 Order Info: 91624-1 - VITD25 Order Info: 2986-8 - RC Performed By: #### L 501.9520, L509.3000, L3400.4800, L506.0400, L100.0100, L500.4050 #### [facility] [address] [place], [address] CO2 [Moles/Vol] 29.0 mmol/L Normal 21.0-32.0 [facility] Comment on above: Order Comment: Order Date: 07/23/23 Order Info: 2131-9 - B12 Order Info: 02926-5 - VITD25 Order Info: 2986-8 - RC Performed By: #### L 501.9520, L509.3000, L3400.4800, L506.0400, L100.0100, L500.4050 #### [facility] [address] [place], [address] Creatinine [Mass/Vol] 1.13 mg/dL Normal 0.70-1.30 [facility] Comment on above: Order Comment: Order Date: 07/23/23 Order Info: 2131-12 Order Info: 97935-7 - VITD25 Order Info: 29809-26 - RC Result Comment: The validity of the calculated GFR GFRAA in patients over 70 years has not been determined. Clinical correlation is essential. Performed By: #### L 501.9520, L509.3000, L3400.4800, L506.0400, L100.0100, L500.4050 #### [facility] [address] [place], [address] EST GFR - AA 90 mL/min Normal >60 [facility] Comment on above: Order Comment: Order Date: 07/23/23 Order Info: 2131-12 Order Info: 23398-7 - VITD25 Order Info: 29809-26 - RC Result Comment: Afri can [place] GFR Calc Performed By: #### L 501.9520, L509.3000, L3400.4800, L506.0400, L100.0100, L500.4050 #### [facility] [address] [place], [address] GAP 7 Normal 5-15 [facility] Comment on above: Order Comment: Order Date: 07/23/23 Order Info: 2131-12 Order Info: 59298-0 - VITD25 Order Info: 29809-26 - RC Performed By: #### L 501.9520, L509.3000, L3400.4800, L506.0400, L100.0100, L500.4050 #### [facility] [address] [place], [address] GFR/1.73 sq M.predicted among non-blacks MDRD (S/P/Bld) [Vol rate/Area] 74 mL/min/{1.73_m2} Normal >60 [facility] Comment on above: Order Comment: Order Date: 07/23/23 Order Info: 9 - B12 Order Info: 27237-9 - VITD25 Order Info: 2986-8 - RC Result Comment: Non- GFR Calc Performed By: #### L 501.9520, L509.3000, L3400.4800, L506.0400, L100.0100, L500.4050 #### [facility] [address] [place], [address] Globulin (S) [Mass/Vol] 3.3 g/dL Normal 2.2-4.2 [facility] Comment on above: Order Comment: Order Date: 07/23/23 Order Info: 2131-12 Order Info: 70864-5 - VITD25 Order Info: 2986-8 - RC Performed By: #### L 501.9520, L509.3000, L3400.4800, L506.0400, L100.0100, L500.4050 #### [facility] [address] [place], [address] Glucose [Mass/Vol] 94 mg/dL Normal 74-106 [facility] Comment on above: Order Comment: Order Date: 07/23/23 Order Info: 2131-12 Order Info: 04977-5 - VITD25 Order Info: 2986-8 - RC Performed By: #### L 501.9520, L509.3000, L3400.4800, L506.0400, L100.0100, L500.4050 #### [facility] [address] [place], [address] Potassium [Moles/Vol] 4.3 mmol/L Normal 3.5-5.1 [facility] Comment on above: Order Comment: Order Date: 07/23/23 Order Info: 9 - B12 Order Info: 94643-6 - VITD25 Order Info: 2986-8 - RC Performed By: #### L 501.9520, L509.3000, L3400.4800, L506.0400, L100.0100, L500.4050 #### [facility] [address] [place], [address] Sodium [Moles/Vol] 140 mmol/L Normal 136-145 [facility] Comment on above: Order Comment: Order Date: 07/23/23 Order Info: 2131-12 - B12 Order Info: 13588-0 - VITD25 Order Info: 298-8 - RC Performed By: #### L 501.9520, L509.3000, L3400.4800, L506.0400, L100.0100, L500.4050 #### [facility] [address] [place], [address] T PROT 7.4 g/dL Normal 6.4-8.2 [facility] Comment on above: Order Comment: Order Date: 07/23/23 Order Info: 2131-12 - B12 Order Info: [id number] - VITD25 Order Info: 298-8 - RC Performed By: #### L 501.9520, L509.3000, L3400.4800, L506.0400, L100.0100, L500.4050 #### [facility] [address] [place], [address] Urea nitrogen [Mass/Vol] 17 mg/dL Normal 7-18 [facility] Comment on above: Order Comment: Order Date: 07/23/23 Order Info: 9 - B12 Order Info: [id number] - VITD25 Order Info: 2986-8 - RC Performed By: #### L 501.9520, L509.3000, L3400.4800, L506.0400, L100.0100, L500.4050 #### [facility] [address] [place], [address] T4 Free Directon 12-12-2023 T4 FREE DIRECT 0.83 ng/dL Normal 0.76-1.46 [facility] Comment on above: Order Comment: Order Date: 07/23/23 Order Info: 9 - B12 Order Info: 01441-5 - VITD25 Order Info: 2986-8 - RC Performed By: #### L 501.9520, L509.3000, L3400.4800, L506.0400, L100.0100, L500.4050 #### [facility] [address] [place], [address] Testosterone, Serum Totalon 12-12-2023 Testosterone [Mass/Vol] 128.05 ng/dL Normal [facility] Comment on above: Order Comment: Order Date: 07/23/23 Order Info: 2131-12 B12 Order Info: 44210-6 - VITD25 Order Info: 29809-26 - RC Result Comment: CENT RAL 90% REFERENCE RANGES MALE AGE <50 197.44 - 669.58 ng/dL MALE AGE > or = 50 187.72 - 684.19 ng/dL FEMALE AGE <50 8.38 - 35.01 ng/dL FEMALE AGE > or = 50 <7.00 - 35.92 ng/dL Effective as of 11/14/20 Performed By: #### L 501.9520, L509.3000, L3400.4800, L506.0400, L100.0100, L500.4050 #### [facility] [address] [place], [address] Thyroid Stim Hormone (TSH)on 12-12-2023 TSH 4.190 uIU/mL High 0.358-3.740 [facility] Comment on above: Order Comment: Order Date: 07/23/23 Order Info: 9 - B12 Order Info: [id number] - VITD25 Order Info: 2986-8 - RC Performed By: #### L 501.9520, L509.3000, L3400.4800, L506.0400, L100.0100, L500.4050 #### [facility] [address] [place], [address] Testosterone Freeon 07-28-19 TESTOSTER FREE 3.0 pg/mL Abnormal 6.8-21.5 [facility] Comment on above: Order Comment: Order Date: 07/23/23 Order Info: 2991-8 - TESTOF Result Comment: Perf ormed at: - [facility] [id number] Residential Support Specialist: Juan Parkinson MD, Phone: [phone] Performed By: #### L 501.9520, L509.3000, L3400.4800, L506.0400, L100.0100, L500.4050 #### [facility] [address] [place], [address] Absolute lymphocyte countOrd ered By: Marino Trinidad on 07-23-2023 Lymphocytes Auto (Unsp spec) [#/Vol] 1.54 10*3/uL 0.83-4.51 [facility] Automated lymphocyte count a s percentage of total leukocytesOrdered By: Marino Trinidad on 07-23-2023 Lymphocytes/100 WBC Auto (Unsp spec) 33.6 % 19-41 [facility] Basophil percentageOrdered B y: Marino Trinidad on 07-23-2023 Basophils/100 WBC (Bld) 1.1 % 0-1 [facility] Bilirubin [Mass/Vol] 0.60 mg/dL 0.20-1.00 [facility] Comment on above: For patients on eltr ombopag therapy, use of Dimension Elizabeth TBIL is not recommended. Chloride [Moles/Vol] 106 mmol/L 98-107 [facility] Eosinophils/100 WBC (Bld) 1.5 % 0-5 [facility] Glucose [Mass/Vol] 90 mg/dL 74-106 [facility] Hemoglobin (Bld) [Mass/Vol] 15.5 g/dL 13.0-16.5 [facility] Monocytes/100 WBC (Bld) 10.5 % 0-10 [facility] Neutrophils (Bld) [#/Vol] 2.4 10*3/uL 2.0-7.7 [facility] Neutrophils/100 WBC (Bld) 53.1 % 47-70 [facility] Potassium [Moles/Vol] 3.7 mmol/L 3.5-5.1 [facility] Protein [Mass/Vol] 7.9 g/dL 6.4-8.2 [facility] Sodium [Moles/Vol] 139 mmol/L 136-145 [facility] Testosterone [Mass/Vol] 160.84 ng/dL [facility] Comment on above: CENTRAL 90% REFERENC E RANGES MALE AGE <50 197.44 - 669.58 ng/dL MALE AGE > or = 50 187.72 - 684.19 ng/dL FEMALE AGE <50 8.38 - 35.01 ng/dL FEMALE AGE > or = 50 <7.00 - 35.92 ng/dL Effective as of 11/14/20 WBC (Bld) [#/Vol] 4.6 10*3/uL 4.4-11.0 [facility] CBC W/Diff, Automatedon 04-0 -2023 Absolute Lymph 1.54 X10 3/uL Normal 0.83-4.51 [facility] Comment on above: Order Comment: Order Date: 07/23/23 Order Info: 0184-1 - CBCD Performed By: #### L 501.9520, L509.3000, L3400.4800, L506.0400, L100.0100, L500.4050 #### [facility] [address] [place], [place], [id number] [phone] Absolute Neut 2.4 X10 3/uL Normal 2.0-7.7 [facility] Comment on above: Order Comment: Order Date: 07/23/23 Order Info: 0184-1 - CBCD Performed By: #### L 501.9520, L509.3000, L3400.4800, L506.0400, L100.0100, L500.4050 #### [facility] [address] [place], [place], [id number] Basophils/100 WBC (Bld) 1.1 % High 0-1 [facility] Comment on above: Order Comment: Order Date: 07/23/23 Order Info: 0184-1 - CBCD Performed By: #### L 501.9520, L509.3000, L3400.4800, L506.0400, L100.0100, L500.4050 #### [facility] [address] [place], [address] Eosinophils/100 WBC (Bld) 1.5 % Normal 0-5 [facility] Comment on above: Order Comment: Order Date: 07/23/23 Order Info: 0184- - CBCD Performed By: #### L 501.9520, L509.3000, L3400.4800, L506.0400, L100.0100, L500.4050 #### [facility] [address] [place], [address] Erythrocyte distribution width (RBC) [Ratio] 11.9 % Normal 11.6-14.6 [facility] Comment on above: Order Comment: Order Date: 07/23/23 Order Info: 0184- - CBCD Performed By: #### L 501.9520, L509.3000, L3400.4800, L506.0400, L100.0100, L500.4050 #### [facility] [address] [place], [address] Hematocrit (Bld) [Volume fraction] 45.3 % Normal 40-54 [facility] Comment on above: Order Comment: Order Date: 07/23/23 Order Info: 0184-1 - CBCD Performed By: #### L 501.9520, L509.3000, L3400.4800, L506.0400, L100.0100, L500.4050 #### [facility] [address] [place], [address] Hemoglobin (Bld) [Mass/Vol] 15.5 g/dL Normal 13.0-16.5 [facility] Comment on above: Order Comment: Order Date: 07/23/23 Order Info: 0184-1 - CBCD Performed By: #### L 501.9520, L509.3000, L3400.4800, L506.0400, L100.0100, L500.4050 #### [facility] [address] [place], [address] IG% 0.200 Normal 0.0-0.9 [facility] Comment on above: Order Comment: Order Date: 07/23/23 Order Info: 0184-1 - CBCD Result Comment: IG% - Immature Granulocytes (promyelocytes, myelocytes and metamyelocytes) > 1% indicates that a LEFT SHIFT is Present. Performed By: #### L 501.9520, L509.3000, L3400.4800, L506.0400, L100.0100, L500.4050 #### [facility] [address] [place], [address] Lymphocytes/100 WBC (Bld) 33.6 % Normal 19-41 [facility] Comment on above: Order Comment: Order Date: 07/23/23 Order Info: 0184-1 - CBCD Performed By: #### L 501.9520, L509.3000, L3400.4800, L506.0400, L100.0100, L500.4050 #### [facility] [address] [place], [address] MCH (RBC) [Entitic mass] 29.2 pg Normal 27.0-32.0 [facility] Comment on above: Order Comment: Order Date: 07/23/23 Order Info: 0184-1 - CBCD Performed By: #### L 501.9520, L509.3000, L3400.4800, L506.0400, L100.0100, L500.4050 #### [facility] [address] [place], [address] MCHC (RBC) [Mass/Vol] 34.2 g/dL Normal 32-36 [facility] Comment on above: Order Comment: Order Date: 07/23/23 Order Info: 0184-1 - CBCD Performed By: #### L 501.9520, L509.3000, L3400.4800, L506.0400, L100.0100, L500.4050 #### [facility] [address] [place], [address] MCV (RBC) [Entitic vol] 85.5 fL Normal 80-94 [facility] Comment on above: Order Comment: Order Date: 07/23/23 Order Info: 0184-1 - CBCD Performed By: #### L 501.9520, L509.3000, L3400.4800, L506.0400, L100.0100, L500.4050 #### [facility] [address] [place], [address] Monocytes/100 WBC (Bld) 10.5 % High 0-10 [facility] Comment on above: Order Comment: Order Date: 07/23/23 Order Info: 0184-1 - CBCD Performed By: #### L 501.9520, L509.3000, L3400.4800, L506.0400, L100.0100, L500.4050 #### [facility] [address] [place], [address] Neutrophils/100 WBC (Bld) 53.1 % Normal 47-70 [facility] Comment on above: Order Comment: Order Date: 07/23/23 Order Info: 0184-1 - CBCD Performed By: #### L 501.9520, L509.3000, L3400.4800, L506.0400, L100.0100, L500.4050 #### [facility] [address] [place], [address] Nucleated RBC (Bld) [#/Vol] 0 10*3/uL Normal 0-5 [facility] Comment on above: Order Comment: Order Date: 07/23/23 Order Info: 0184-1 - CBCD Performed By: #### L 501.9520, L509.3000, L3400.4800, L506.0400, L100.0100, L500.4050 #### [facility] [address] [place], [address] Platelet mean volume (Bld) [Entitic vol] 9.3 fL Normal 6.2-12.0 [facility] Comment on above: Order Comment: Order Date: 07/23/23 Order Info: 0184-1 - CBCD Performed By: #### L 501.9520, L509.3000, L3400.4800, L506.0400, L100.0100, L500.4050 #### [facility] [address] [place], [address] Platelets (Bld) [#/Vol] 317 10*3/uL Normal 150-450 [facility] Comment on above: Order Comment: Order Date: 07/23/23 Order Info: 0184-1 - CBCD Performed By: #### L 501.9520, L509.3000, L3400.4800, L506.0400, L100.0100, L500.4050 #### [facility] [address] [place], [address] RBC (Bld) [#/Vol] 5.30 10*6/uL Normal 4.6-6.2 [facility] Comment on above: Order Comment: Order Date: 07/23/23 Order Info: 0184-1 - CBCD Performed By: #### L 501.9520, L509.3000, L3400.4800, L506.0400, L100.0100, L500.4050 #### [facility] [address] [facility] [place], [address] RDW SD 36.7 fl Normal 35.1-43.9 [facility] Comment on above: Order Comment: Order Date: 07/23/23 Order Info: 0184-1 - CBCD Performed By: #### L 501.9520, L509.3000, L3400.4800, L506.0400, L100.0100, L500.4050 #### [facility] [address] [place], [address] WBC (Bld) [#/Vol] 4.6 10*3/uL Normal 4.4-11.0 [facility] Comment on above: Order Comment: Order Date: 07/23/23 Order Info: 0184-1 - CBCD Performed By: #### L 501.9520, L509.3000, L3400.4800, L506.0400, L100.0100, L500.4050 #### [facility] [address] [place], [address] Comprehensive Metabolic Prof ilon 07-23-2023 Albumin [Mass/Vol] 4.5 g/dL Normal 3.2-5.0 [facility] Comment on above: Order Comment: Order Date: 07/23/23 Order Info: 0786-1 - CMP Order Info: 3016-3 - TSH Order Info: 3024-7 - T4F Performed By: #### L 501.9520, L509.3000, L3400.4800, L506.0400, L100.0100, L500.4050 #### [facility] [address] [place], [address] Albumin/Globulin [Mass ratio] 1.3 {ratio} Normal 0.9-2.4 [facility] Comment on above: Order Comment: Order Date: 07/23/23 Order Info: 0786-1 - CMP Order Info: 3016-3 - TSH Order Info: 3024-7 - T4F Performed By: #### L 501.9520, L509.3000, L3400.4800, L506.0400, L100.0100, L500.4050 #### [facility] [address] [place], [address] ALK P 63 U/L Normal 45-117 [facility] Comment on above: Order Comment: Order Date: 07/23/23 Order Info: 0786-1 - CMP Order Info: 3015-3 - TSH Order Info: 3024-7 - T4F Performed By: #### L 501.9520, L509.3000, L3400.4800, L506.0400, L100.0100, L500.4050 #### [facility] [address] [place], [address] ALT [Catalytic activity/Vol] 44 U/L Normal 16-61 [facility] Comment on above: Order Comment: Order Date: 07/23/23 Order Info: 785-1 - CMP Order Info: 3 - TSH Order Info: 3027 - T4F Performed By: #### L 501.9520, L509.3000, L3400.4800, L506.0400, L100.0100, L500.4050 #### [facility] [address] [place], [address] AST [Catalytic activity/Vol] 18 U/L Normal 15-37 [facility] Comment on above: Order Comment: Order Date: 07/23/23 Order Info: 785-1 - CMP Order Info: 3 - TSH Order Info: 302-7 - T4F Performed By: #### L 501.9520, L509.3000, L3400.4800, L506.0400, L100.0100, L500.4050 #### [facility] [address] [place], [address] Bilirubin [Mass/Vol] 0.60 mg/dL Normal 0.20-1.00 [facility] Comment on above: Order Comment: Order Date: 07/23/23 Order Info: 0786-1 - CMP Order Info: 30163 - TSH Order Info: 3024-7 - T4F Result Comment: For patients on eltrombopag therapy, use of Dimension Elizabeth TBIL is not recommended. Performed By: #### L 501.9520, L509.3000, L3400.4800, L506.0400, L100.0100, L500.4050 #### [facility] [address] [place], [address] BUN/CRE 15.6 RATIO Normal 10-20 [facility] Comment on above: Order Comment: Order Date: 07/23/23 Order Info: 0786-1 - CMP Order Info: 3016-3 - TSH Order Info: 3024-7 - T4F Performed By: #### L 501.9520, L509.3000, L3400.4800, L506.0400, L100.0100, L500.4050 #### [facility] [address] [place], [address] CA,Total 9.0 mg/dL Normal 8.5-10.1 [facility] Comment on above: Order Comment: Order Date: 07/23/23 Order Info: 0786-1 - CMP Order Info: 3 - TSH Order Info: 3027 - T4F Performed By: #### L 501.9520, L509.3000, L3400.4800, L506.0400, L100.0100, L500.4050 #### [facility] [address] [place], [address] Chloride [Moles/Vol] 106 mmol/L Normal 98-107 [facility] Comment on above: Order Comment: Order Date: 07/23/23 Order Info: 0786-1 - CMP Order Info: 30163 - TSH Order Info: 3024-7 - T4F Performed By: #### L 501.9520, L509.3000, L3400.4800, L506.0400, L100.0100, L500.4050 #### [facility] [address] [place], [address] CO2 [Moles/Vol] 27.0 mmol/L Normal 21.0-32.0 [facility] Comment on above: Order Comment: Order Date: 07/23/23 Order Info: 0786-1 - CMP Order Info: 30163 - TSH Order Info: 3024-7 - T4F Performed By: #### L 501.9520, L509.3000, L3400.4800, L506.0400, L100.0100, L500.4050 #### [facility] [address] [place], [address] Creatinine [Mass/Vol] 1.09 mg/dL Normal 0.70-1.30 [facility] Comment on above: Order Comment: Order Date: 07/23/23 Order Info: 071 - CMP Order Info: 3 - TSH Order Info: 3023-10 - T4F Result Comment: The validity of the calculated GFR GFRAA in patients over 70 years has not been determined. Clinical correlation is essential. Performed By: #### L 501.9520, L509.3000, L3400.4800, L506.0400, L100.0100, L500.4050 #### [facility] [address] [place], [address] EST GFR - AA 94 mL/min Normal >60 [facility] Comment on above: Order Comment: Order Date: 07/23/23 Order Info: 07 - CMP Order Info: 3015-06 - TSH Order Info: 3023-10 - T4F Result Comment: Afri can [place] GFR Calc Performed By: #### L 501.9520, L509.3000, L3400.4800, L506.0400, L100.0100, L500.4050 #### [facility] [address] [place], [address] GAP 6 Normal 5-15 [facility] Comment on above: Order Comment: Order Date: 07/23/23 Order Info: 07861 - CMP Order Info: 3 - TSH Order Info: 3023-10 - T4F Performed By: #### L 501.9520, L509.3000, L3400.4800, L506.0400, L100.0100, L500.4050 #### [facility] [address] [place], [address] GFR/1.73 sq M.predicted among non-blacks MDRD (S/P/Bld) [Vol rate/Area] 77 mL/min/{1.73_m2} Normal >60 [facility] Comment on above: Order Comment: Order Date: 07/23/23 Order Info: 0786-1 - CMP Order Info: 3015-3 - TSH Order Info: 3023-7 - T4F Result Comment: Non- GFR Calc Performed By: #### L 501.9520, L509.3000, L3400.4800, L506.0400, L100.0100, L500.4050 #### [facility] [address] [place], [address] Globulin (S) [Mass/Vol] 3.4 g/dL Normal 2.2-4.2 [facility] Comment on above: Order Comment: Order Date: 07/23/23 Order Info: 0786- - CMP Order Info: 3 - TSH Order Info: 7 - T4F Performed By: #### L 501.9520, L509.3000, L3400.4800, L506.0400, L100.0100, L500.4050 #### [facility] [address] [place], [address] Glucose [Mass/Vol] 90 mg/dL Normal 74-106 [facility] Comment on above: Order Comment: Order Date: 07/23/23 Order Info: 0786-1 - CMP Order Info: 3 - TSH Order Info: 3023-7 - T4F Performed By: #### L 501.9520, L509.3000, L3400.4800, L506.0400, L100.0100, L500.4050 #### [facility] [address] [place], [address] Potassium [Moles/Vol] 3.7 mmol/L Normal 3.5-5.1 [facility] Comment on above: Order Comment: Order Date: 07/23/23 Order Info: 0786-1 - CMP Order Info: 3016-3 - TSH Order Info: 3024-7 - T4F Performed By: #### L 501.9520, L509.3000, L3400.4800, L506.0400, L100.0100, L500.4050 #### [facility] [address] [place], [address] Sodium [Moles/Vol] 139 mmol/L Normal 136-145 [facility] Comment on above: Order Comment: Order Date: 07/23/23 Order Info: 07-1 - CMP Order Info: 3 - TSH Order Info: 3027 - T4F Performed By: #### L 501.9520, L509.3000, L3400.4800, L506.0400, L100.0100, L500.4050 #### [facility] [address] [place], [address] T PROT 7.9 g/dL Normal 6.4-8.2 [facility] Comment on above: Order Comment: Order Date: 07/23/23 Order Info: 0786-1 - CMP Order Info: 6-3 - TSH Order Info: 3024-7 - T4F Performed By: #### L 501.9520, L509.3000, L3400.4800, L506.0400, L100.0100, L500.4050 #### [facility] [address] [place], [address] Urea nitrogen [Mass/Vol] 17 mg/dL Normal 7-18 [facility] Comment on above: Order Comment: Order Date: 07/23/23 Order Info: 0786-1 - CMP Order Info: 3016-3 - TSH Order Info: 3024-7 - T4F Performed By: #### L 501.9520, L509.3000, L3400.4800, L506.0400, L100.0100, L500.4050 #### [facility] [address] [place], [place], [address] Determination of erythrocyte mean corpuscular volume (MCV)Ordered By: Marino Trinidad on 07-23-2023 MCV (RBC) [Entitic vol] 85.5 fL 80-94 [facility] Erythrocyte distribution wid th ratioOrdered By: Marino Trinidad on 07-23-2023 Erythrocyte distribution width (RBC) [Ratio] 11.9 % 11.6-14.6 [facility] Erythrocyte distribution wid th standard deviationOrdered By: Marino Trinidad on 07-23-2023 Erythrocyte distribution width (RBC) [Entitic vol] 36.7 fL 35.1-43.9 [facility] Hematocrit Auto (Bld) [Volum e fraction]Ordered By: Marino Trinidad on 07-23-2023 Hematocrit (Bld) [Volume fraction] 45.3 % 40-54 [facility] Immature granulocytes/100 WB C Auto (Bld)Ordered By: Marino Trinidad on 07-23-2023 Immature granulocytes/100 WBC (Bld) 0.200 % 0.0-0.9 [facility] Comment on above: IG% - Immature Granu locytes (promyelocytes, myelocytes and metamyelocytes) > 1% indicates that a LEFT SHIFT is Present. Laboratory - Chemistry and C hemistry - challengeOrdered By: Marino Trinidad on 07-23-2023 Albumin/Globulin [Mass ratio] 1.3 {ratio} 0.9-2.4 [facility] ALP [Catalytic activity/Vol] 63 U/L 45-117 [facility] ALT [Catalytic activity/Vol] 44 U/L 16-61 [facility] CO2 [Moles/Vol] 27.0 mmol/L 21.0-32.0 [facility] Cobalamin (Vitamin B12) [Mass/Vol] 386 pg/mL 211-911 [facility] Globulin (S) [Mass/Vol] 3.4 g/dL 2.2-4.2 [facility] Urea nitrogen/Creatinine [Mass ratio] 15.6 mg/mg 10-20 [facility] - Hematology and Cell countsOrdered By: Marino Trinidad on 07-23-2023 MCH (RBC) [Entitic mass] 29.2 pg 27.0-32.0 [facility] MCHC (RBC) [Mass/Vol] 34.2 g/dL 32-36 [facility] Nucleated RBC/100 WBC (Bld) [Ratio] 0 % 0-5 [facility] Platelet mean volume (Bld) [Entitic vol] 9.3 fL 6.2-12.0 [facility] Platelets (Bld) [#/Vol] 317 10*3/uL 150-450 [facility] No Panel InformationOrdered By: Marino Trinidad on 07-23-2023 Estimated GFR (MDRD) Amer 94 mL/min >60 [facility] Comment on above: GFR Calc Estimated GFR (MDRD) Non-Af Amer 77 mL/min >60 [facility] Comment on above: Non- GFR Calc Vitamin D 25-Hydroxy 33.9 ng/mL [facility] Comment on above: Vitamin D 25(OH) Sta tus Range Deficiency <20 ng/mL (50nmol/L) Insufficiency 20 - 30 ng/mL (50 - 75 nmol/L) Sufficiency 30 - 100 ng/mL (75 - 250 nmol/L) Toxicity >100 ng/mL (>250 nmol/L) RBC Auto (Bld) [#/Vol]Ordere d By: Marino Trinidad on 07-23-2023 RBC (Bld) [#/Vol] 5.30 10*6/uL 4.6-6.2 [facility] Serum or plasma calcium jasmine urement (mass/volume)Ordered By: Marino Trinidad on 07-23-2023 Calcium [Mass/Vol] 9.0 mg/dL 8.5-10.1 [facility] Serum or plasma creatinine m easurement (mass/volume)Ordered By: Marino Trinidad on 07-23-2023 Creatinine [Mass/Vol] 1.09 mg/dL 0.70-1.30 [facility] Comment on above: The validity of the calculated GFR & GFRAA in patients over 70 years has not been determined. Clinical correlation is essential. Serum or plasma testosterone free measurement (mass/volume)Ordered By: Marino Trinidad on 07-23-2023 Testosterone Free [Mass/Vol] 3.0 pg/mL 6.8-21.5 [facility] Comment on above: Performed at: [address], [place] [id number] Director: Juan Parkinson MD, Phone: [phone] Serum or plasma thyroid stim ulating hormone (TSH) measurement (units/volume)Ordered By: Marino Trinidad on 07-23-2023 TSH Qn 3.60 uIU/mL 0.358-3.74 [facility] Serum or plasma urea nitroge n measurement (mass/volume)Ordered By: Marino Trinidad on 07-23-2023 Urea nitrogen [Mass/Vol] 17 mg/dL 11-05 [facility] T4 Free Directon 07-23-2023 T4 FREE DIRECT 0.90 ng/dL Normal 0.76-1.46 [facility] Comment on above: Order Comment: Order Date: 07/23/23 Order Info: 0786-1 - CMP Order Info: 3016-3 - TSH Order Info: 3024-7 - T4F Performed By: #### L 501.9520, L509.3000, L3400.4800, L506.0400, L100.0100, L500.4050 #### [facility] [address] [place], [place], [id number] Testosterone, Serum Totalon 07-23-2023 Testosterone [Mass/Vol] 160.84 ng/dL Normal [facility] Comment on above: Order Comment: Order Date: 07/23/23 Order Info: 2132-9 - B12 Order Info: 55408-6 - VITD25 Order Info: 2986-8 - RC Result Comment: CENT RAL 90% REFERENCE RANGES MALE AGE <50 197.44 - 669.58 ng/dL MALE AGE > or = 50 187.72 - 684.19 ng/dL FEMALE AGE <50 8.38 - 35.01 ng/dL FEMALE AGE > or = 50 <7.00 - 35.92 ng/dL Effective as of 11/14/20 Performed By: #### L 501.9520, L509.3000, L3400.4800, L506.0400, L100.0100, L500.4050 #### [facility] [address] [place], [address] Thin prep Papanicolaou smear with manual screeningOrdered By: Marino Trinidad on 07-23-2023 Thin prep Papanicolaou smear with manual screening 4.5 g/dL 3.2-5.0 [facility] Thin prep Papanicolaou smear with manual screening 18 U/L 15-37 [facility] Thin prep Papanicolaou smear with manual screening 6 5-15 [facility] Thin prep Papanicolaou smear with manual screening 0.90 ng/dL 0.76-1.46 [facility] Thyroid Stim Hormone (TSH)on 07-23-2023 TSH 3.60 uIU/mL Normal 0.358-3.74 [facility] Comment on above: Order Comment: Order Date: 07/23/23 Order Info: [id number] - CMP Order Info: [id number] - TSH Order Info: [id number] - T4F Performed By: #### L 501.9520, L509.3000, L3400.4800, L506.0400, L100.0100, L500.4050 #### [facility] [address] [place], [address] Vitamin B12on 07-23-2023 Cobalamin (Vitamin B12) [Mass/Vol] 386 pg/mL Normal 211-911 [facility] Comment on above: Order Comment: Order Date: 07/23/23 Order Info: [id number] - B12 Order Info: [id number] - VITD25 Order Info: [id number] - RC Performed By: #### L 506.1000, L503.0105 #### [facility] [address] [place], [address] Vitamin D,25 Hydroxyon 07-22 Vitamin D 25-OH 33.9 ng/mL Normal [facility] Comment on above: Order Comment: Order Date: 07/23/23 Order Info: [id number] - B12 Order Info: [id number] - VITD25 Order Info: [id number] - RC Result Comment: Honey min D 25(OH) Status Range Deficiency <20 ng/mL (50nmol/L) Insufficiency 20 - 30 ng/mL (50 - 75 nmol/L) Sufficiency 30 - 100 ng/mL (75 - 250 nmol/L) Toxicity >100 ng/mL (>250 nmol/L) Performed By: #### L 506.1000, L503.0105 #### [facility] [address] [place], [address] Basophil percentageOrdered B y: Marino Trinidad on 04-23-2023 Testosterone [Mass/Vol] 257.12 ng/dL [facility] Comment on above: CENTRAL 90% REFERENC E RANGES MALE AGE <50 197.44 - 669.58 ng/dL MALE AGE > or = 50 187.72 - 684.19 ng/dL FEMALE AGE <50 8.38 - 35.01 ng/dL FEMALE AGE > or = 50 <7.00 - 35.92 ng/dL Effective as of 11/14/20 Laboratory - Chemistry and C hemistry - challengeOrdered By: Marino Trinidad on 04-23-2023 Free T4 [Mass/Vol] 0.75 ng/dL 0.76-1.46 [facility] No Panel InformationOrdered By: Marino Trinidad on 04-23-2023 Thyroid Stimulating Hormone (TSH) 5.42 uIU/mL 0.358-3.74 [facility] Serum or plasma testosterone free measurement (mass/volume)Ordered By: Marino Trinidad on 04-23-2023 Testosterone Free [Mass/Vol] 3.8 pg/mL 6.8-21.5 [facility] Comment on above: Performed at: [address] [id number] Director: Juan Parkinson MD, Phone: [phone] Basophil percentageOrdered B y: Marino Trinidad on 01-10-2023 Testosterone [Mass/Vol] 102 ng/dL 264-974 [facility] Comment on above: Adult male reference interval is based on a population ofhealthy nonobese males (BMI <30) between 19 and 39 yearsold. hemanth Bishop.al. JCEM 2017,102;9573-0575. PMID:[id number]. Free testosterone percentage Ordered By: Marino Trinidad on 01-10-2023 Testosterone Free/Testosterone.tota l [Mass fraction] 2.23 % 1.50-4.20 [facility] - Chemistry and C hemistry - challengeOrdered By: Marino Trinidad on 01-10-2023 Cobalamin (Vitamin B12) [Mass/Vol] 455 pg/mL 211-911 [facility] Free T4 [Mass/Vol] 0.80 ng/dL 0.76-1.46 [facility] No Panel InformationOrdered By: Marino Trinidad on 01-10-2023 Thyroglobulin Antibody < 1.0 IU/mL 0.0-0.9 [facility] Comment on above: Thyroglobulin Antibo dy measured by Yahaira [employer] Thyroglobulin Level 15.7 ng/mL 1.4-29.2 [facility] Comment on above: According to the [facility] [employer] of Clinical Biochemistry,the reference interval for Thyroglobulin (TG) should berelated to euthyroid patients and not for patients whounderwent thyroidectomy. TG reference intervals for thesepatients depend on the residual mass of the thyroid tissueleft after surgery. Establishing a post-operative baselineis recommended. The assay limit of quantitation is 0.1ng/mLThyroglobulin measured by Yahaira [place] [employer] Thyroid Stimulating Hormone (TSH) 3.62 uIU/mL 0.358-3.74 [facility] Vitamin D 25-Hydroxy 45.1 ng/mL [facility] Comment on above: Vitamin D 25(OH) Sta tus Range Deficiency <20 ng/mL (50nmol/L) Insufficiency 20 - 30 ng/mL (50 - 75 nmol/L) Sufficiency 30 - 100 ng/mL (75 - 250 nmol/L) Toxicity >100 ng/mL (>250 nmol/L) Serum or plasma testosterone free measurement (mass/volume)Ordered By: Marino Trinidad on 01-10-2023 Testosterone Free [Mass/Vol] 2.27 ng/dL 5.00-21.00 [facility] Serum or plasma thyroperoxid ase antibody assay (units/volume)Ordered By: Marino Trinidad on 01-10-2023 TPO Ab Qn 359 [IU]/mL 0-34 [facility] Comment on above: Performed at: [address] [id number] Director: Gadiel Garcia PhD, Phone: [phone] at: [facility] Lab[address] [id number] Director: Juan Parkinson MD, Phone: [phone] Thyroid stimulating immunogl obulins detectionOrdered By: Marino Trinidad on 01-10-2023 Thyroid stimulating immunoglobulins Ql (S) 0.37 IU/L 0.00-0.55 [facility] Absolute lymphocyte countOrd ered By: Ravi Neville on 11-15-2022 Lymphocytes Auto (Unsp spec) [#/Vol] 1.47 10*3/uL 0.83-4.51 [facility] Basophil percentageOrdered B y: Ravi Lozada on 11-15-2022 Basophils/100 WBC (Bld) 0.8 % 0-1 [facility] Bilirubin [Mass/Vol] 0.50 mg/dL 0.20-1.00 [facility] Comment on above: For patients on eltr ombopag therapy, use of Dimension Elizabeth TBIL is not recommended. Chloride [Moles/Vol] 105 mmol/L 98-107 [facility] Cholesterol [Mass/Vol] 183 mg/dL <200 [facility] Comment on above: <200 mg/dL Desirable 200-240 mg/dL Borderline >240 mg/dL High Risk Eosinophils/100 WBC (Bld) 2.1 % 0-5 [facility] Glucose [Mass/Vol] 95 mg/dL 74-106 [facility] Neutrophils (Bld) [#/Vol] 2.7 10*3/uL 2.0-7.7 [facility] Neutrophils/100 WBC (Bld) 55.8 % 47-70 [facility] Potassium [Moles/Vol] 4.9 mmol/L 3.5-5.1 [facility] Protein [Mass/Vol] 7.7 g/dL 6.4-8.2 [facility] Sodium [Moles/Vol] 139 mmol/L 136-145 [facility] Triglyceride [Mass/Vol] 174 mg/dL <199 [facility] Comment on above: The drugs N-Acetylcy steine and Metamizole may falsely depress this assay.Serum Triglycerides Reference Interval Normal <150 mg/dL Borderline high 150 - 199 mg/dL High 200 - 499 mg/dL Very High > or = 500 mg/dL WBC (Bld) [#/Vol] 4.8 10*3/uL 4.4-11.0 [facility] Blood erythrocytes count (nu mber/volume)Ordered By: Ravi Lozada on 11-15-2022 RBC (Bld) [#/Vol] 5.42 10*6/uL 4.6-6.2 [facility] Blood hemoglobin measurement (mass/volume)Ordered By: Ravi Lozada on 11-15-2022 Hemoglobin (Bld) [Mass/Vol] 15.8 g/dL 13.0-16.5 [facility] Blood lymphocytes/100 leukoc ytesOrdered By: Ravi Lozada on 11-15-2022 Lymphocytes/100 WBC (Bld) 30.4 % 19-41 [facility] Blood monocytes/100 leukocyt esOrdered By: [facility] Healthchaparrita Lozada on 11-15-2022 Monocytes/100 WBC (Bld) 10.7 % 0-10 [facility] Blood platelet mean volumeOr dered By: Ravi Lozada on 11-15-2022 Platelet mean volume (Bld) [Entitic vol] 9.5 fL 6.2-12.0 [facility] Determination of erythrocyte mean corpuscular volume (MCV)Ordered By: Ravi Lozada on 11-15-2022 MCV (RBC) [Entitic vol] 88.7 fL 80-94 [facility] Hematocrit Auto (Bld) [Volum e fraction]Ordered By: Ravi Lozada on 11-15-2022 Hematocrit (Bld) [Volume fraction] 48.1 % 40-54 [facility] - Chemistry and C hemistry - challengeOrdered By: [facility]a Lozada on 11-15-2022 ALP [Catalytic activity/Vol] 58 U/L 45-117 [facility] ALT [Catalytic activity/Vol] 40 U/L 16-61 [facility] CO2 [Moles/Vol] 29.0 mmol/L 21.0-32.0 [facility] Globulin (S) [Mass/Vol] 3.4 g/dL 2.2-4.2 [facility] Urea nitrogen/Creatinine [Mass ratio] 15.3 mg/mg 10-20 [facility] - Hematology and Cell countsOrdered By: Ravi Lozada on 11-15-2022 Erythrocyte distribution width (RBC) [Entitic vol] 39.1 fL 35.1-43.9 [facility] Erythrocyte distribution width (RBC) [Ratio] 12.0 % 11.6-14.6 [facility] Immature granulocytes/100 WBC (Bld) 0.200 % 0.0-0.9 [facility] Comment on above: IG% - Immature Granu locytes (promyelocytes, myelocytes and metamyelocytes) > 1% indicates that a LEFT SHIFT is Present. MCH (RBC) [Entitic mass] 29.2 pg 27.0-32.0 [facility] Nucleated RBC/100 WBC (Bld) [Ratio] 0 % 0-5 [facility] MCHC Auto (RBC) [Mass/Vol]Or dered By: Ravi Lozada on 11-15-2022 MCHC (RBC) [Mass/Vol] 32.8 g/dL 32-36 [facility] No Panel InformationOrdered By: Ravi Lozada on 11-15-2022 Estimated GFR (MDRD) Amer 86 mL/min >60 [facility] Comment on above: GFR Calc Estimated GFR (MDRD) Non-Af Amer 71 mL/min >60 [facility] Comment on above: Non- GFR Calc Prostate Specific Antigen Screen 0.41 ng/mL 0.00-4.00 [facility] Comment on above: This test was perfor med using the TPSA assay method for the[facility] chemistry system. Values obtained with differentassay methods cannot be used interchangably.When changing PSA assays in the course of monitoring apatient, additional sequential testing should be carriedout to confirm baseline values. Thyroid Stimulating Hormone (TSH) 6.66 uIU/mL 0.358-3.74 [facility] Platelets bldOrdered By: Mercy Lozada on 11-15-2022 Platelets (Bld) [#/Vol] 287 10*3/uL 150-450 [facility] Serum or plasma albumin jasmine urement (mass/volume)Ordered By: Ravi Lozada on 11-15-2022 Albumin [Mass/Vol] 4.3 g/dL 3.2-5.0 [facility] Serum or plasma albumin/glob ulin mass ratioOrdered By: Ravi Lozada on 11-15-2022 Albumin/Globulin [Mass ratio] 1.3 {ratio} 0.9-2.4 [facility] Serum or plasma calcium jasmine urement (mass/volume)Ordered By: Ravi Lozada on 11-15-2022 Calcium [Mass/Vol] 9.1 mg/dL 8.5-10.1 [facility] Serum or plasma cholesterol in HDL measurement (mass/volume)Ordered By: Ravi Lozada on 11-15-2022 Cholesterol in HDL [Mass/Vol] 53 mg/dL >40 [facility] Comment on above: The drugs N-Acetylcy steine and Metamizole may falsely depress this assay. Reference Range HDL <40 mg/dL Low HDL Cholesterol HDL >or= 60 mg/dL High HDL Cholesterol Serum or plasma cholesterol in VLDL measurement (mass/volume)Ordered By: Ravi Lozada on 11-15-2022 Cholesterol in VLDL [Mass/Vol] 35 mg/dL 5-40 [facility] Serum or plasma creatinine m easurement (mass/volume)Ordered By: Ravi Lozada on 11-15-2022 Creatinine [Mass/Vol] 1.18 mg/dL 0.70-1.30 [facility] Comment on above: The validity of the calculated GFR & GFRAA in patients over 70 years has not been determined. Clinical correlation is essential. Serum or plasma low density lipoprotein (LDL) cholesterol measurement (mass/volume)Ordered By: Ravi Lozada on 11-15-2022 Cholesterol in LDL [Mass/Vol] 95 mg/dL 0-130 [facility] Serum or plasma urea nitroge n measurement (mass/volume)Ordered By: Ravi Lozada on 11-15-2022 Urea nitrogen [Mass/Vol] 18 mg/dL 7-18 [facility] Thin prep Papanicolaou smear with manual screeningOrdered By: Ravi Lozada on 11-15-2022 Thin prep Papanicolaou smear with manual screening 19 U/L 15-37 [facility] Thin prep Papanicolaou smear with manual screening 5 5-15 [facility] Encounters Encounter Date Encounter Type Care Provider Facility Start: 06-11-2024 End: 06-11-2024 ambulatory Marino Trinidad Facility:[facility] Start: 03-07-2024 End: 03-07-2024 ambulatory Marino Tien Johnathan BRUNO Facility:[facility] Start: 12-12-2023 End: 12-12-2023 ambulatory Marino Trinidad Facility:[facility] Start: 07-23-2023 End: 07-23-2023 ambulatory [facility] Work Phone: Start: 07-23-2023 End: 07-23-2023 [facility] Start: 07-23-2023 End: 07-23-2023 ambulatory Marino Buster Amos Facility:[facility] Start: 04-23-2023 End: 04-23-2023 ambulatory [facility] Work Phone: Start: 04-23-2023 End: 04-23-2023 Patient encounter procedure [facility] Start: 01-27-2023 End: 01-27-2023 Patient encounter procedure [facility], [facility] Work Phone: Start: 01-10-2023 End: 01-10-2023 ambulatory [facility] Work Phone: Start: 01-10-2023 End: 01-10-2023 Patient encounter procedure [facility] Start: 11-15-2022 End: 11-15-2022 ambulatory [facility] Work Phone: Start: 11-15-2022 End: 11-15-2022 [facility] Start: 10-11-2021 End: 10-11-2021 [facility] Start: 02-26-2021 End: 02-26-2021 ambulatory [facility] Start: 11-20-2020 End: 11-20-2020 ambulatory [facility] Procedures Date Procedure Procedure Detail Performing Clinician Start: 01-27-2023 US scan of thyroid Start: 10-11-2021 Plain chest X-ray Plan of Treatment Date Care Activity Detail Author Testosterone Free [M ass/volume] in Serum or Plasma [facility] Testosterone Free [M ass/volume] in Serum or Plasma [facility] Testosterone measurement [facility] Thyroglobulin antibody measurement [facility] Thyroid stimulating immunoglobulins actual/normal in Serum [facility] Thyroperoxidase Ab [ Units/volume] in Serum or Plasma [facility] Payers Date Payer Category Payer Self-pay [id number] 2023 Unknown [id number] Unknown [facility] P[facility]AGE PLAN [id number] Unknown [id number] [id number] [id number] Unknown [id number] [id number] Unknown [id number] [id number] [id number] Unknown [id number] [id number] [id number] Social History Date Type Detail Facility Start: 10-31-2020 End: 10-31-2020 Tobacco smoking status NHIS Unknown if ever smoked [facility] Start: 1975 Sex Assigned At Male W [facility] Evaluation note Note Date & Type Note Facility Evaluation note No assessment information availa ble [facility] Work Phone: Summary Purpose Family History No Family History Records Found Relationship Condition Age at Onset Recorded Date/T eliazar father Multiple sclerosis Unknown brother Cerebrovascular accident (CVA) Unknown mother Cardiac disease Unknown brother Cardiac disease Unknown Advance Directives No Advanced Directives Records FoundNo Advanced Directives Records Found Chief Complaint and Reason for Visit Chief Complaint THYROMEGALY Additional Source Comments (unrecognized sect ion and content) No Status Records FoundNo Status Records Found INFORMATION SOURCE (unrecogn ized section and content) DATE CREATED AUTHOR 02/27/2021 [facility] DATE CREATED AUTHOR AUTHOR'S HEIDI ATEMELY 06/24/2024 [facility] Goals (unrecognized section and content) Goals may be documented in a n alternate sectionGoals may be documented in an alternate sectionGoals may be documented in an alternate sectionGoals may be documented in an alternate sectionGoals may be documented in an alternate section Care Teams (unrecognized sec tion and content) Team Status: Active Member Role Status Dates Dr. Marino Trinidad MD Primary Care Provider Active Team Status: Inactive Member Role Status Dates Dr. Marino Trinidad MD Primary Care Provider Active Ravi Lozada MD Attending Provider Active Team Status: Inactive Member Role Status Dates Dr. Marino Trinidad MD Primary Care Provider, Attend ing Provider Active Team Status: Inactive Member Role Status Dates Dr. Marino Trinidad MD Primary Care Pr ovider, Attending Provider, Referring Provider Active FOR RECORDS PERTAINING TO PATIENTS WHO ARE [...] BE BASED ON THE PRIMARY CLINICAL RECORDS. [facility] [employer] [facility]. provides no warranty or guarantee of the accuracy or completeness of information in this document.
[2024-12-16 16:09] LABS: T3UP 25 % (24-39)
== END | disposition home or self-care (01) ==
LOC: LAB 15:11
PROVIDERS: PCP Family Medicine
DX: R53.83 Other fatigue (principal)
CPT/HCPCS: 36415; 84153; 84436; 84443; 84479; G0103